=== PATIENT | female | born 1945 | race Caucasian/White ===

== ENCOUNTER 2023-02-09 10:31 | Outpatient (RCR) | payer MEDICARE, SELFPAY ==
--- NOTE | 2023-02-10 07:53 | PT.OPEX ---
[facility] [place] [facility] Out[facility] Eval Start: 02/09/23 07:52 Freq: Status: Active Protocol: Document 02/09/23 07:56 SELENA (Rec: 02/09/23 18:11 SELENA [id number]) E-signed By Jorge Sparks PT Physical Therapy Outpatient Evaluation Insurance Information Insurance Name [facility] Insurance Information/Comments Medicare Complete Medical Diagnosis Right Sciatica Treating Diagnosis Right knee pain Left shoulder pain Decreased right hip mobility Decreased left shoulder mobility Referring MD Valle Subjective Subjective Pt. comes to therapy today with complaints of right thigh /knee pain symptoms which both bother her most at night when she is trying to sleep. She has difficulty lying on her left shoulder and reaching, with some difficulty walking due to right knee/thigh pain symptoms. No injuries are noted, both have just worsened over the past couple of years . Pt. has some difficulty giving clear history due to short term memory deficits, so her Krish also helped with subjective history. PMH includes HTN and shoulder/hip dysfunction. Pain Comments 8 Date of Last Physician Visit 01/01/23 Current Work Status Retired Preferred Name [facility] Objective Range of Motion Significant limitations in both active and passive right hip ROM with firm end feel. Significant limitations in both active and passive left shoulder ROM with firm end feel. Right knee ROM is WFL without pain Strength General core weakness left shoulder cuff weakness right hip abductor and extensor weakness Balance & Gait mild limp on right LE with some balance deficits noted. Other/Pertinent Objective Negative bilateral SLR Assessment Assessment/Impression Objectively, pt. 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 She would benefit from diagnostics to assess left shoulder and right hip status along with skilled therapy working on improving ROM and mobility of both areas. Primary Functional Limitations sleeping reaching with left arm walking Plan of Care Rehabilitation Potential Good Physical Therapy Goals 1. Pt. and will be independent with HEP for self maintenance in 8 weeks. 2. Pt. will demonstrate improved right hip and left shoulder mobility and core strength in 12 weeks 3. Pt. will report improved pain at night in left shoulder and right knee in 12 weeks. Coordination/Communication With Referral Source Treatment Plan/Direct Interventions Joint Mobilization,Manual Therapy,Self-Care/Home Management,Therapeutic Activities,Therapeutic Exercises Direct Interventions Clarification I will contact MD about Comments patients left shoulder and right hip findings. Frequency/Duration Weekly to every other week for 12 weeks Patient Will Be Discharged From Therapy Independent w/HEP, Independently Progressing Evaluation Billing Complexity Moderate Certification Information Initial Certification Date 02/09/23 Ending Certification Date 05/06/23 Provider Signature Shows Agreement With POC & Medical Necessity Physician Signature & Date Requested Please Sign/Date Here Physician Comment/Change : Physician NPI Number #
== END 2023-05-15 09:19 | disposition home or self-care (01) ==
PROVIDERS: PCP Internal Medicine; Visit Provider Internal Medicine
DX: M54.31 Sciatica, right side (principal); M25.561 Pain in right knee; M25.512 Pain in left shoulder; Z74.09 Other reduced mobility; Z51.89 Encounter for other specified aftercare
CPT/HCPCS: 97110; 97162

== ENCOUNTER 2023-02-17 13:11 | Outpatient (CLI) | payer MEDICARE, SELFPAY ==
--- OUTSIDE RECORDS SUMMARY | 2023-02-17 13:14 | XMS_ITS | Continuity of Care Document ---
Author Name [facility] Providers Care Local Delivery Driver Name Role Phone [facility] Unavailable Unavailable Problems Problem Status Onset Date Classification Date Reported Comments Source Disease of thyroid gland (disorder) Active 10/14/2018 [facility] Hypertensive disorder, systemic arterial (disorder) Active 10/14/2018 [facility] Urinary tract infection, site not specified 10/14/2018 [facility] Essential (primary) hypertension 10/14/2018 [facility] Medications Medication Details Route Status Patient Instructions Ordering Provider Order Date Source Sulfamethoxazole 800 MG / Trimethoprim 160 MG Oral Tablet [Bactrim] 1 Tab Tab, PO, BID, 14 Tab, 0, Maintenance, Print Requisition Active 2018 [facility] calcium-vitamin D 1 Tab, PO, qDay, 0, Maintenance Active 2014 [facility] Fish Oil 1200 mg oral capsule 1 Cap, PO, qDay, 0, Maintenance Active 2014 [facility] multivitamin, therapeutic 1 Tab, PO, qDay, 0, Maintenance Active 2014 [facility] Hydrochlorothiazide 12.5 MG / Lisinopril 10 MG Oral Tablet 0.5 Tab Tab, PO, qDay, 30 Tab, 0, Maintenance Active 2014 [facility] Synthroid 88 mcg, Tab, PO, qDay, Qty: 30 Tab, 0, Maintenance Active 2014 [facility] Results Order Name Results Value Reference Range Date Interpretation Comments Source Urine Dipstick Appearance CLEAR Clear 10/06 [facility] Urine Dipstick Color ORANGE Yellow 10/06 [facility] Urine Dipstick Specific [place] 1.015 1.008 - 1.020 10/06 [facility] Urine Dipstick UpH 5.5 5.0 - 8.0 10/06 [facility] Urine Dipstick UBlood 1+ Negative 10/06 [facility] Urine Dipstick UBilirubin Negative Negative 10/06 [facility] Urine Dipstick UGlucose Trace Negative 10/06 [facility] Urine Dipstick UKetones Negative Negative 10/06 [facility] Urine Dipstick ULeukocyte Esterase 3+ Negative 10/06 [facility] Urine Dipstick UNitrite Positive Negative 10/06 [facility] Urine Dipstick UProtein 1+ Negative 10/06 ABN --------- Unless otherwise noted, tests performed at the following location: --------- [facility] Urinalysis UProtein 1+ *ABN* (10/06/18 2:38 PM) Negative 10/06 [facility] Urinalysis UNitrite Positive *ABN* (10/06/18 2:38 PM) Negative 10/06 [facility] Urinalysis ULeukocyte Esterase 3+ *ABN* (10/06/18 2:38 PM) Negative 10/06 [facility] Urinalysis UBilirubin Negative (10/06/18 2:38 PM) Negative 10/06 [facility] Urinalysis UKetones Negative (10/06/18 2:38 PM) Negative 10/06 [facility] Urinalysis Specific [place] 1.015 1.008 - 1.020 10/06 [facility] Urinalysis UBlood 1+ *ABN* (10/06/18 2:38 PM) Negative 10/06 [facility] Urinalysis UpH 5.5 5.0 - 8.0 10/06 [facility] Urinalysis Color [place] *ABN* (10/06/18 2:38 PM) Yellow 10/06 [facility] Urinalysis Appearance Clear (10/06/18 2:38 PM) Clear 10/06 [facility] Urinalysis UGlucose Trace *ABN* (10/06/18 2:38 PM) Negative 10/06 [facility] Urine Dipstick Appearance Cloudy 09/27 [facility] [place] Urine Dipstick Color Yellow 09/27 NA [facility] Urine Dipstick Specific [place] 1.010 1.008 - 1.020 09/27 [facility] [place] Urine Dipstick UpH 7.0 5.0 - 8.0 09/27 [facility] [place] Urine Dipstick UBlood 1+ Negative 09/27 [facility]N [facility] [place] Urine Dipstick UBilirubin Negative Negative 09/27 [facility] [place] Urine Dipstick UGlucose Negative Negative 09/27 [facility] [place] Urine Dipstick UKetones Negative Negative 09/27 [facility] [place] Urine Dipstick ULeukocyte Esterase 2+ Negative 09/27 [facility] [place] Urine Dipstick UNitrite Negative Negative 09/27 [facility] [place] Urine Dipstick UProtein Negative Negative 09/27 [facility] [place] Urine Cult Urine Cult Final: >100,000 cfu/ml Escherichia coli ORGANISM: Esccol 10/10 [facility] Urine Dipstick Appearance Clear 10/10 NA [facility] Urine Dipstick Color Yellow 10/10 NA [facility] Urine Dipstick Specific [place] <=1.005 1.008 - 1.020 10/10 [facility] Urine Dipstick UpH 6.0 5.0 - 8.0 10/10 [facility] Urine Dipstick UBlood 2+ Negative 10/10 [facility] Urine Dipstick UBilirubin Negative Negative 10/10 [facility] Urine Dipstick UGlucose Negative Negative 10/10 [facility] Urine Dipstick UKetones Negative Negative 10/10 [facility] Urine Dipstick ULeukocyte Esterase 1+ Negative 10/10 [facility] Urine Dipstick UNitrite Negative Negative 10/10 [facility] Urine Dipstick UProtein Negative Negative 10/10 [facility] Consultation Notes Results Value Date Source ED Physician Notes Patient: JACIEL PATEL (EV) Age: 73 years Sex: F : 41 Associated Diagnoses: None Author: Zaid Fang MD Basic Information Time seen: Provider Initial Contact Time 10/06/2018 15:00. History source: Patient. Additional information: Chief Complaint (ST) Chief Complaint ED: Dysuria and chills 10/06/18 14:34, Subjective Nursing Assessment: Day 5, Use of AZO this am. Denies flank pain and abdominal pain. Defers apap in triage. NAD 10/06/18 14:34. 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 No fevers or chills or sweats. Tolerating fluids well. Did take Azo this morning. Has had UTIs before with similar presentation. States her PCP back home recommend she take sulfa medication for UTIs when this does occur. No abdominal pain or back pain. No vaginal complaints. No rash.. Review of Systems Constitutional symptoms: No fever, no chills, no sweats. Skin symptoms: No rash, Eye symptoms: Negative except as documented in HPI. ENMT symptoms: Negative except as documented in HPI. Respiratory symptoms: Negative except as documented in HPI. Cardiovascular symptoms: Negative except as documented in HPI. Gastrointestinal symptoms: No abdominal pain, no nausea, no vomiting. Genitourinary symptoms: Dysuria, No hematuria, Musculoskeletal symptoms: No back pain, Neurologic symptoms: Negative except as documented in HPI. Psychiatric symptoms: Negative except as documented in HPI. Endocrine symptoms: Negative except as documented in HPI. Hematologic/Lymphatic symptoms: Negative except as documented in HPI. Allergy/immunologic symptoms: No recurrent infections, Additional review of systems information: All other systems reviewed and otherwise negative. Health Status Allergies: Allergic Reactions (Selected) NKA. Medications: (Selected) Documented Medications Documented Fish Oil 1200 mg oral capsule: 1 Cap, PO, qDay Synthroid: 88 mcg, PO, qDay, 30 Tab, 0 Refill(s) calcium-vitamin D: 1 Tab, PO, qDay hydrochlorothiazide-lisinopril 12.5 mg-10 m.5 Tab, PO, qDay, 30 Tab, 0 Refill(s) multivitamin, therapeutic: 1 Tab, PO, qDay, Include Documented Meds (Selected) Documented Medications Documented Fish Oil 1200 mg oral capsule: 1 Cap, PO, qDay Synthroid: 88 mcg, PO, qDay, 30 Tab, 0 Refill(s) calcium-vitamin D: 1 Tab, PO, qDay hydrochlorothiazide-lisinopril 12.5 mg-10 m.5 Tab, PO, qDay, 30 Tab, 0 Refill(s) multivitamin, therapeutic: 1 Tab, PO, qDay. Past Medical/ Family/ Social History Medical history Reviewed as documented in chart. Medical history: All Problems Thyroid disease / [id number] / Confirmed Hypertension / [id number] / Confirmed, Reviewed as documented in chart. Surgical history: No active procedure history items have been selected or recorded.. Family history: Reviewed as documented in chart, No family history items have been selected or recorded.. Social history: Social and Psychosocial Habits Alcohol 10/06/2018 Use: Current Home/Environment 10/06/2018 Sikh restrictions/concerns: None Substance Abuse 10/06/2018 Use: Unknown substance abuse h Tobacco 10/06/2018 Tobacco Use: Never (less than 100 in l, Occupation: Retired, Reviewed as documented in chart. Physical Examination Vital Signs Vital-Signs 10/06/18 14:34 [facility] SPO2 96 % Normal Heart Rate 75 bpm Normal NIBP Systolic 160 mm Hg H NIBP Diastolic 81 mm Hg Normal Resp Rate (Monitor) 16 Breaths/Min Normal Temperature Temporal Artery 36.0 deg C L Pain Intensity 3 Pain Scale Used Numeric Rating Scale . Measurements 10/06/18 14:34 [facility] Drug Calc Weight (kg) 63.636 kg BMI 23.35 Height 165.1 cm . SPO2 10/06/18 14:34 [facility] SPO2 96 % Normal . General: Alert, no acute distress, pleasant. Nontoxic. Not colicky. Afebrile.. Skin: Warm, dry, no rash. Head: Normocephalic, atraumatic. Neck: Supple, trachea midline. Eye: Extraocular movements are intact. Ears, nose, mouth and throat: Oral mucosa moist. Cardiovascular: Normal peripheral perfusion. Respiratory: Respirations are non-labored. Gastrointestinal: Soft, Nontender, Non distended. Back: Nontender, Normal range of motion. Musculoskeletal: Normal ROM. Neurological: Normal motor observed, normal speech observed. Lymphatics Psychiatric: Cooperative, appropriate mood and affect. Medical Decision Making Results review: Lab results : Laboratory 10/06/18 14:38 [facility] Color [place] Appearance Clear Specific [place] 1.015 Normal UpH 5.5 Normal UGlucose Trace UBilirubin Negative UKetones Negative UBlood 1+ UProtein 1+ UNitrite Positive ULeukocyte Esterase 3+ . Impression and Plan Acute UTI (urinary tract infection) (PQT84-GZ N39.0, Discharge, Medical) Antibiotic prescribed. Patient requests sulfa medication. Follow-up as needed. Recommend adequate hydration. Precautionary advice reviewed. Plan Condition: Stable. Disposition: Discharged: to home. Prescriptions: Launch RX Schedule Clerk Pharmacy: Bactrim DS 800 mg-160 mg oral tablet (Prescribe): 1 Tab, PO, BID, for 7 Day, 14 Tab, 0 Refill(s). Follow up with: Follow-up with PCP or return to urgent care as needed. Take prescription medication as directed. Use [id number] medication for symptom relief. Maintain adequate hydration. Continue to monitor symptoms. Diet and activity as tolerated.. Counseled: Patient, Regarding diagnosis, Regarding diagnostic results, Regarding treatment plan, Regarding prescription, Patient indicated understanding of instructions. Electronically Signed By: Zaid Fang MD On 10/06/18 15:19 Co Signature By: Modify Signature By: 10/06/2018 [facility] ED Physician Notes Patient: JACIEL PATEL (EV) Age: 70 years Sex: F : 41 Associated Diagnoses: None Author: Maureen Mejia NP Basic Information Time seen: Provider Initial Contact Time 09/27/2015 15:51. History source: Patient. Arrival mode: Private vehicle. Additional information: Chief Complaint (ST) Chief Complaint ED: pain with urination 09/27/15 14:57, ED Triage Assessment: Pt states that since Thursday she has had pain with urination and urinary frequency. No other complaints. NAD Refused Pyridium in triage. Denies lower abdominal/back pain and or blood in the urine 09/27/15 14:57 . History of Present Illness The patient presents with dysuria. The onset was 1 days ago. The course/duration of symptoms is worsening. Radiating pain: none. The character of symptoms is burning. The degree at onset was moderate. The degree at present is minimal. The exacerbating factor is none. The relieving factor is liquid. Risk factors consist of hypertension. Therapy today: none. Associated symptoms: hematuria, voiding small amounts, denies fever, denies nausea, denies pelvic pain and denies diarrhea. Additional history: Patient reports she had a UTI last year while wintering here, she was prescribed macrobid and it did not seem to help completely. She saw her PCP and was prescribed bactrim that cleared it away.. Review of Systems Constitutional symptoms: Negative except as documented in HPI. Skin symptoms: Negative except as documented in HPI. Eye symptoms: Negative except as documented in HPI. ENMT symptoms: Negative except as documented in HPI. Respiratory symptoms: Negative except as documented in HPI. Cardiovascular symptoms: Negative except as documented in HPI. Gastrointestinal symptoms: Negative except as documented in HPI. Genitourinary symptoms: Negative except as documented in HPI. Musculoskeletal symptoms: Negative except as documented in HPI. Neurologic symptoms: Negative except as documented in HPI. Health Status Allergies: Allergic Reactions (Selected) NKA. Medications: Include Documented Meds (Selected) Prescriptions Prescribed Bactrim DS oral tablet: 1 Tab, PO, BID, for 10 Day, 20 Tab, 0 Refill(s) Documented Medications Documented Fish Oil 1200 mg oral capsule: 1 Cap, PO, qDay Synthroid: 88 mcg, PO, qDay, 30 Tab, 0 Refill(s) calcium-vitamin D: 1 Tab, PO, qDay hydrochlorothiazide-lisinopril 12.5 mg-10 m.5 Tab, PO, qDay, 30 Tab, 0 Refill(s) multivitamin, therapeutic: 1 Tab, PO, qDay. Past Medical/ Family/ Social History Medical history: All Problems Thyroid disease / [id number] / Confirmed Hypertension / [id number] / Confirmed. Surgical history: No active procedure history items have been selected or recorded.. Family history: Not significant. Social history: Alcohol use: Occasionally, Tobacco use: Denies, Occupation: Retired, Family/social situation: , intact family. Physical Examination Vital Signs Vital-Signs 09/27/15 14:57 [facility] Oxygen Amount Room air SPO2 97 % Heart Rate 64 bpm NIBP Diastolic 81 mm Hg NIBP Systolic 134 mm Hg Resp Rate (Monitor) 14 Breaths/Min Temperature Temporal Artery 36.6 deg C Pain Intensity 3 Pain Scale Used Numeric Rating Scale . Measurements 09/27/15 14:57 [facility] Drug Calc Weight (kg) 69.091 kg BMI 25.35 Height 165.1 cm . SPO2 09/27/15 14:57 [facility] SPO2 97 % . General: Alert. Skin: Warm. Cardiovascular: Regular rate and rhythm. Respiratory: Lungs are clear to auscultation. Psychiatric: Cooperative. Medical Decision Making Differential Diagnosis: Urinary tract infection. Results review: Lab results : Laboratory 09/27/15 15:03 [facility] Color Yellow Appearance Cloudy Specific [place] 1.010 UpH 7.0 UGlucose Negative UBilirubin Negative UKetones Negative UBlood 1+ UProtein Negative UNitrate Negative ULeu 2+ . Impression and Plan Acute lower UTI (urinary tract infection) (EFR04-CT N39.0, Discharge, Medical) Plan Condition: Stable. Disposition: Discharged: Time 09/27/15 16:11:00, to home. Prescriptions: Launch RX Schedule Clerk Pharmacy: Bactrim DS oral tablet (Prescribe): 1 Tab, PO, BID, for 10 Day, 20 Tab, 0 Refill(s), [place] Meds List Medications reviewed.. Follow up with: Follow up with your usual provider Within 3 to 5 days if not improving.. Counseled: Patient, Regarding diagnosis, Regarding diagnostic results, Regarding treatment plan, Regarding prescription, Patient indicated understanding of instructions. Electronically Signed By: Maureen Mejia NP On 09/27/15 16:22 Co Signature By: Binu Loera MD On 09/28/15 23:15 Modify Signature By: Maureen Mejia NP On 09/27/15 16:07 09/27/2015 [facility] Physician Notes Patient: JACIEL PATEL (EV) Age: 69 years Sex: F : 41 Author: Gerson Bobby MD Basic Information Time seen: Provider Initial Contact Time 10/10/2014 11:23. History source: Patient. History limitation: None. History of Present Illness The patient presents with Patient is a 69-year-old female who presented to urgent care with chief complaint of frequency and burning sensation in urination for 2 days patient report a slight lower abdominal discomfort, denies any back pain no flank pain, no fever and chills, no nausea vomiting, no vaginal discharge or bleeding, her last urinary tract infection is more than one year ago no history of pyelonephritis or kidney stone.. Review of Systems Constitutional symptoms: Negative except as documented in HPI. Skin symptoms: Negative except as documented in HPI. Gastrointestinal symptoms: Negative except as documented in HPI. Genitourinary symptoms: Negative except as documented in HPI. Musculoskeletal symptoms: Negative except as documented in HPI. Neurologic symptoms: Negative except as documented in HPI. Endocrine symptoms: Negative except as documented in HPI. Hematologic/Lymphatic symptoms: Negative except as documented in HPI. Allergy/immunologic symptoms: Negative except as documented in HPI. Health Status Allergies: Allergic Reactions (Selected) NKA. Past Medical/ Family/ Social History Medical history: All Problems Thyroid disease / [id number] / Confirmed Hypertension / [id number] / Confirmed. Surgical history: No active procedure history items have been selected or recorded.. Family history: Not significant. Social history: Reviewed as documented in chart. Physical Examination Vital Signs Vital-Signs 10/10/14 11:05 [facility] SPO2 98 % Heart Rate 68 bpm NIBP Diastolic 80 mm Hg NIBP Systolic 128 mm Hg Resp Rate (Monitor) 16 Breaths/Min Temperature PO 36.4 deg C Pain Intensity 0 Pain Scale Used Numeric Rating Scale . Measurements 10/10/14 11:05 [facility] Drug Calc Weight (kg) 69.545 kg BMI 25.54 Height 165 cm . General: Alert, no acute distress. Skin: Warm, dry, pink. Head: Normocephalic, atraumatic. Eye: Pupils are equal, round and reactive to light, extraocular movements are intact, normal conjunctiva. Gastrointestinal: Soft, Non distended, Normal bowel sounds, Tenderness: Moderate, suprapubic, right flank negative, left flank negative, Rebound: Negative. Back: Nontender. Neurological: Alert and oriented to person, place, time, and situation, No focal neurological deficit observed, CN II-XII intact. Lymphatics: No lymphadenopathy. Psychiatric: Cooperative, appropriate mood and affect. Medical Decision Making Results review: Lab results : Laboratory 10/10/14 11:10 [facility] Color Yellow Appearance Clear Specific [place] <=1.005 UpH 6.0 UGlucose Negative UBilirubin Negative UKetones Negative UBlood 2+ UProtein Negative UNitrite Negative ULeukocyte Esterase 1+ . Notes: Urine sent out for culture. Impression and Plan Diagnosis Urinary tract infection 599.0 (ICD9 599.0, Discharge, Emergency medicine, Medical) Plan Condition: Stable. Disposition: Discharged: to home, Patient care transitioned to: Discussed with patient the nature of illness, treatment plan and medication, and importance of having F/U with primary care physician in 3 days. , Emergency room Precautions were discussed, if current symptoms worsen or any symptoms develop patient must be seen immediately in the emergency room, patient voiced understanding. Prescriptions: Launch RX Schedule Clerk Laboratory: Culture Urine (Order Processing): 10/10/14 11:26 [facility], Clean Catch Mid-Stream, Routine-Next Collection, Nurse Collect Pharmacy: Pyridium 200 mg oral tablet* (Prescribe): 1 Tab, PO, TID, 21 Tab Macrobid 100 mg oral capsule (Prescribe): 1 Cap, PO, BID, 14 Cap Admit/Transfer/Discharge: Discharge (Order Processing): 10/10/14 11:26 [facility], Now, Home or self care. Patient was given the following educational materials: Urinary Tract Infection. Follow up with: Take medications as directed Return to UC or ED if symptoms persist or worsen Follow up with your Primary Care Physician as needed Within 1 to 2 days. Counseled: Patient, Regarding diagnosis, Regarding treatment plan, Regarding prescription, Patient indicated understanding of instructions. Electronically Signed By: Gerson Bobby MD On 10/10/14 11:29 Co Signature By: Modify Signature By: 10/10/2014 [facility] Vital Signs Vital Sign Value Date Comments Source Drug Calc Weight (kg) 63.636 10/06/2018 [facility] BMI 23.35 10/06/2018 [facility] Pain Scale Numeric Rating Scale (10/06/18 2:34 PM) 10/06/2018 [facility] Height (cm) 165.1 10/06/2018 [facility] SPO2 96 10/06/2018 [facility] Respiratory Rate 16 Breaths/Min 10/06/2018 [facility] Heart Rate (bpm) 75 10/06/2018 [facility] Temperature (c) 36.0 10/06/2018 [facility] Systolic (mm Hg) 160 10/06/2018 [facility] Diastolic (mm Hg) 81 10/06/2018 [facility] Sensory Deficits None (10/06/18 2:34 PM) 10/06/2018 [facility] Encounters Location Location Details Encounter Type Encounter Number Reason For Visit Attending Provider ADM Date DC Date Status Source [facility] Emergency [id number] Zaid Fang 10/06 [facility] Social History Social History Date Source Social History TypeResponse Smoking Status Never (less than 100 in lifetime) entered on: 10/06/18 10/06/2018 [facility] Assessment and Plan Result Assessment and Plan Date Source Assessment and Plan No data available fo r this section 10/06/2018 [facility]
--- NOTE | 2023-02-17 13:20 | CRLHL7_ITS ---
For Patients: As a result of the Century Cures Act, medical imaging exams and procedure reports are released immediately into your electronic medical record. You may view this report before your referring provider. If you have questions, please contact your health care provider. BILATERAL SCREENING MAMMOGRAM WITH COMPUTER-AIDED DETECTION AND TOMOSYNTHESIS TECHNIQUE: CC and MLO views were obtained. These mammographic images have been obtained using full-field digital technique. These mammographic images were interpreted with the benefit of computer-aided detection. Breast Tomosynthesis was used in this interpretation. COMPARISON FILM: 01/01/22, 04/23/21. FINDINGS: There are scattered areas of fibroglandular density IMPRESSION: There is no radiographic evidence for malignancy. ASSESSMENT: BI-RADS Category 1: Negative RECOMMENDATION: Routine screening mammogram in 1 year. A lay language report of this examination will be provided to the patient. Anish Thomas M.D. Diagnostic Radiologist [email or web address] Transcribed: 3:10 p.ela [email or web address] by: Anish Thomas MD @ 02/18/2023 11:24:00 AM (Electronically Signed)
== END 2023-02-17 13:12 | disposition home or self-care (01) ==
LOC: MAMMO 13:13
PROVIDERS: PCP Internal Medicine; Visit Provider Internal Medicine
DX: Z12.31 Encounter for screening mammogram for malignant neoplasm of breast (principal)
CPT/HCPCS: 77063; 77067

== ENCOUNTER 2023-12-07 09:35 | Outpatient (CLI) | payer MEDICARE, SELFPAY | END 2023-12-07 09:36 | disposition home or self-care (01) | LOC: NFLDREF 12-22 10:01 | PROVIDERS: PCP Internal Medicine; Referring Provider Internal Medicine; Visit Provider Internal Medicine | DX: I10 Essential (primary) hypertension (principal); E78.5 Hyperlipidemia, unspecified; E03.9 Hypothyroidism, unspecified | CPT/HCPCS: 80048; 80061; 84439; 84443 ==

== ENCOUNTER 2024-02-19 10:26 | Outpatient (CLI) | payer MEDICARE, SELFPAY ==
--- NOTE | 2024-02-19 10:40 | CRLHL7_ITS ---
For Patients: As a result of the Century Cures Act, medical imaging exams and procedure reports are released immediately into your electronic medical record. You may view this report before your referring provider. If you have questions, please contact your health care provider. BILATERAL SCREENING MAMMOGRAM WITH COMPUTER-AIDED DETECTION AND TOMOSYNTHESIS TECHNIQUE: CC and MLO views were obtained. These mammographic images have been obtained using full-field digital technique. These mammographic images were interpreted with the benefit of computer-aided detection. Breast Tomosynthesis was used in this interpretation. COMPARISON FILM: 02/17/2023, 01/01/2022. FINDINGS: There are scattered areas of fibroglandular density IMPRESSION: There is no radiographic evidence for malignancy. ASSESSMENT: BI-RADS Category 1: Negative RECOMMENDATION: Routine screening mammogram in 1 year. A lay language report of this examination will be provided to the patient. Anish Thomas M.D. Diagnostic Radiologist [email or web address] AMISHA/Dictated by: Anish Thomas MD @ 02/19/2024 12:20:00 PM (Electronically Signed)
== END 2024-02-19 10:27 | disposition home or self-care (01) ==
PROVIDERS: PCP Internal Medicine; Visit Provider Internal Medicine
DX: Z12.31 Encounter for screening mammogram for malignant neoplasm of breast (principal)
CPT/HCPCS: 77063; 77067

== ENCOUNTER 2024-03-24 11:05 | Outpatient (CLI) | payer MEDICARE, SELFPAY ==
--- NOTE | 2024-03-24 11:15 | CRLHL7_ITS ---
For Patients: As a result of the Century Cures Act, medical imaging exams and procedure reports are released immediately into your electronic medical record. You may view this report before your referring provider. If you have questions, please contact your health care provider. Indication: Right hip pain. Procedure : Informed consent was obtained. The site was marked. Time-out was performed. The skin of the right hip was cleansed with ChloraPrep. A sterile drape was placed. 8 cc of 1 percent lidocaine was administered for superficial anesthesia. Subsequently a 22 gauge spinal needle was introduced into the right hip joint under intermittent fluoroscopic guidance. Injection of 7 cc 1% lidocaine and 2 cc 40 milligram/cc Depo-Medrol then performed into the right hip joint. The needle was removed and hemostasis achieved with direct pressure. A dressing was placed. The patient tolerated the procedure well without immediate complication and was immediately sent to MRI for imaging. Total fluoroscopy time 8 seconds. Impression: Successful fluoroscopically guided right hip with 80 milligrams of Depo-Medrol. Dictated by Anish Thomas MD @ 03/24/2024 12:30:44 PM (Electronically Signed)
== END 2024-03-24 11:06 | disposition home or self-care (01) ==
LOC: RAD 11:06
PROVIDERS: PCP Internal Medicine; Visit Provider Orthopaedic Surgery Sports Medicine
DX: M16.11 Unilateral primary osteoarthritis, right hip (principal); M25.551 Pain in right hip
CPT/HCPCS: 20610; 77002; J1010; Q9966

== ENCOUNTER 2024-06-13 09:31 | Outpatient (CLI) | payer MEDICARE, SELFPAY | END 2024-06-13 09:32 | disposition home or self-care (01) | LOC: NFLDREF 06-17 03:25 | PROVIDERS: PCP Internal Medicine; Referring Provider Internal Medicine; Visit Provider Internal Medicine | DX: E03.9 Hypothyroidism, unspecified (principal) | CPT/HCPCS: 84439; 84443 ==

== ENCOUNTER 2025-02-20 10:10 | Outpatient (CLI) | payer MEDICARE, SELFPAY | END 2025-02-20 10:11 | disposition home or self-care (01) | LOC: NFLDREF 02-21 15:49 | PROVIDERS: PCP Internal Medicine; Referring Provider Internal Medicine; Visit Provider Internal Medicine | DX: E78.5 Hyperlipidemia, unspecified (principal); I10 Essential (primary) hypertension; E03.9 Hypothyroidism, unspecified | CPT/HCPCS: 80048; 80061; 84443 ==

== ENCOUNTER 2025-05-31 11:00 | Outpatient (CLI) | payer MEDICARE, SELFPAY ==
--- NOTE | 2025-05-31 11:15 | CRLHL7_ITS ---
For Patients: As a result of the Century Cures Act, medical imaging exams and procedure reports are released immediately into your electronic medical record. You may view this report before your referring provider. If you have questions, please contact your health care provider. Indication: Right hip pain. Procedure : Informed consent was obtained. The site was marked. Time-out was performed. The skin of the right hip was cleansed with ChloraPrep. A sterile drape was placed. 8 cc of 1 percent lidocaine was administered for superficial anesthesia. Subsequently a 22 gauge spinal needle was introduced into the right hip joint under intermittent fluoroscopic guidance. Injection of 7 cc 1% lidocaine and 2 cc 40 milligram/cc Depo-Medrol then performed into the right hip joint. The needle was removed and hemostasis achieved with direct pressure. A dressing was placed. The patient tolerated the procedure well without immediate complication and was immediately sent to MRI for imaging. Total fluoroscopy time 32 seconds. Impression: Successful fluoroscopically guided right hip with 80 milligrams of Depo-Medrol. Dictated by Anish Thomas MD @ 05/31/2025 12:00:33 PM (Electronically Signed)
== END 2025-05-31 11:01 | disposition home or self-care (01) ==
LOC: RAD 11:01
PROVIDERS: PCP Internal Medicine; Visit Provider Orthopaedic Surgery Sports Medicine
DX: M16.11 Unilateral primary osteoarthritis, right hip (principal); M25.551 Pain in right hip
CPT/HCPCS: 20610; 77002; J1010; Q9966